=== PATIENT | male | born 1960 | race Caucasian/White ===

== ENCOUNTER 2020-05-26 06:51 | Day surgery (SDC) | payer MEDICARE, MEDICAID, SELFPAY ==
[2020-05-26 06:50] VITALS: BP 167/87; PULSE 60; RESP 16; TEMP 35.9; O2SAT 98
[2020-05-26] MEDS: Lidocaine 2% Jelly 6 ML SYR (08:25)
[2020-05-26] MEDS: Povidone-Iodine Ophth 30 ML BTL OD (08:26)
[2020-05-26] MEDS: Tetracaine 0.5% 4 ML BTL OD (08:28)
[2020-05-26] MEDS: Lidocaine 1% Pres-Free 5 ML VIAL (08:34)
[2020-05-26] MEDS: Balanced Salt Soln.-PLUS 500 ML BAG (08:34)
[2020-05-26] MEDS: Moxifloxacin-PF 1 MG/ML VIAL (08:37)
[2020-05-26] MEDS: Triamcinolone 40 MG/ML VIAL IM (08:41)
--- NOTE | 2020-05-26 09:06 | W.PM.DSUDISC ---
Discharge Plan Disposition Patient Disposition: HOME Condition: Good Discharge Details Attending Provider: Floyd Bauer Primary Care Provider: Vera Mcclendon Home Meds and New Rx's Prescriptions: No Action hydrochlorothiazide 50 MG tablet 50 mg PO DAILY RF: 0 amlodipine 10 MG tablet 10 mg PO DAILY RF: 0 simvastatin 20 MG tablet 20 mg PO DAILY RF: 0 lisinopril 40 MG tablet 40 mg PO DAILY RF: 0 KLOR-CON 10 10 MEQ TABLET.ER 10 meq PO DAILY RF: 0 omeprazole 40 mg capsule,delayed release(DR/EC) 40 mg PO DAILY RF: 0 Combigan 0.2-0.5 % drops 1 drp ophthalmic (eye) BID RF: 0 Discharge Instructions Stand Alone Forms: Post-op Topical Cataract, Jamilah Urrutia (DSU) Discharge Orders Discharge Orders: Discharge Order (Routine); Ordered 05/26/20 Ordered By: Floyd Bauer DS: Diagnosis Discharge Diagnosis (1) Cortical cataract of right eye: Status: Resolved (2) Posterior subcapsular age-related cataract, right eye: Status: Resolved (3) Posterior synechiae (iris), right eye: Status: Resolved (4) Uveitis, anterior: Status: Inactive
--- NOTE | 2020-05-26 09:08 | W.PM.OP ---
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 Cataract extraction by phacoemulsification with intraocular lens implantation, right eye, with pupillary expansion device SURGEON: Floyd Bauer ANESTHESIA: MAC (with local sub-tenon's anesthetic injection) PATHOLOGY: none sent COMPLICATIONS: None Patient was transported to: same day Patient's condition: stable Implants: [employer] / [employer] Tecnis [id number] Indications: Progressive decreased vision due to cataract, right eye, with poorly dilating pupil Procedure Description: CATARACT SURGERY OPERATIVE REPORT PREOPERATIVE DIAGNOSIS: 1. Cortical/posterior subcapsular cataract, right eye 2. Poorly dilating pupil, right eye 3. Extensive posterior synechia, right eye secondary to recurrent/chronic uveitis secondary to ankylosing spondylitis POSTOPERATIVE DIAGNOSIS: Same OPERATION: 1. Cataract extraction using phacoemulsification with posterior chamber intraocular lens implant, right eye. 2. Pupillary dilation and iris stabilization using Malyugin Ring/release of posterior synechia IOL: IOL Technical Sales Support Manager/Model: [employer] Ye[employer] / EDWARD Tecnis ZCB00 IOL Power: + 19.50 diopters IOL Serial Number: [id number] Optic Diameter: 6.0mm Haptic/Overall Diameter: 13.0mm PHACO INFO: Kristian INPHIurion Vision System with OZil and Active Fluidics Cumulative Dispersed Energy (CDE): 2.95 seconds SURGEON: Floyd Bauer MD, NA ANESTHESIA: Monitored Anesthesia Care (MAC), with local sub-tenon's anesthetic infiltration COMPLICATIONS: None SPECIMENS: None INDICATIONS FOR PROCEDURE: The patient is a 59-year-old gentleman with a long history of ankylosing spondylitis with recurrent/chronic uveitis. The right eye has extensive posterior synechia from recurrent bouts of UC uveitis and he has a uveitic cataract in the form of cortical and posterior subcapsular opacities. The option of cataract surgery was offered to the patient and he wished to proceed. PROCEDURE: The correct surgical eye was identified and marked as the right eye and the pupil was dilated in the preoperative area using mydriatics and cycloplegics. The dilated pupil size was 3.5 mm. Patient elected to proceed without sedation the patient was brought to the operating room where cardiopulmonary monitoring was instituted and surgical time-out was performed, confirming the correct operative eye and IOL power. Topical anesthesia was administered and ophthalmic povidone-iodine 5% was instilled into the conjunctival fornices. Lidocaine gel was applied to the cornea and the kayley-ocular area was prepped with Betadine 10% solution and draped in the usual sterile fashion for intraocular surgery, including an aperture drape. A Tegaderm transparent film dressing was cut in half and used to cover the lashes and lid margins. Care was taken to sequester the lashes and lid margins under the Tegaderm dressing. A lid speculum was placed between the lids of the operative eye and the Dima-Mary operating microscope was maneuvered into position. Miriam scissors were then used to make a conjunctival buttonhole approximately 6mm posterior to the limbus in the inferonasal quadrant. Blunt dissection was carried out to expose bare sclera, and a blunt-tipped sub-tenon?s anesthesia cannula was introduced and passed posteriorly along the globe where non-preserved plain lidocaine was injected into posterior sub-Tenon?s space. A sideport knife was used to make a paracentesis port inferiortemporally. Intraocular phenylephrine/lidocaine was injected in the anterior chamber. The anterior chamber was filled with Healon Pro. A 2.4mm keratome knife was used to create a half-thickness groove at the limbus and then to construct a three-plane near-clear corneal tunnel extending 2.0mm into clear cornea superiortemporally. A Kuglen hook was then used to release the extensive posterior synechia. Pupil size was 4 mm. Attempts at pupil stretching were unsuccessful due to the dense fibrotic kayley-pupillary tissue. A 7.0 mm Malyugin Ring was then inserted into the pupillary space and engaged with the Kuglen hook. A flap was raised on the anterior capsule and capsulorhexis forceps were used to complete a continuous curvilinear capsulorhexis of 5.5 mm. Balanced salt solution was then used to perform cortical cleaving hydrodissection and nuclear hydrodelineation until the lens could be freely rotated within the capsular bag. The lens nucleus was then disassembled and removed within the capsular bag and iris plane using phacoemulsification. Residual cortical material was removed using the 45-degree angled silicone I/A tip with 0.3mm port. The posterior capsule was carefully polished to remove as much residual lens epithelial cells as safely possible. The capsular bag was then inflated and the anterior chamber deepened with viscoelastic. The lens implant described above was inserted into the capsular bag using the [employer]WARD [place] Injector. A Kuglen hook was used to dial the IOL into position. The Malyugin Ring was removed in the reverse order of its insertion. Residual viscoelastic was then removed first from posterior to the IOL, then from the anterior chamber using the I/A handpiece. The lens implant was noted to center nicely within the capsular bag. The incisions were stromally hydrated, and the anterior chamber was reformed using BSS. Then 0.5cc of moxifloxacin 1.0mg/ml were injected into the capsular bag and anterior chamber. The incisions were checked with a Weck spear and found to be secure. At the conclusion of the procedure, Kenalog 20 mg in 0.5 cc was injected into posterior sub-tenon's space using the sub-tenon's anesthetic injection cannula. Several drops of ophthalmic povidone-iodine 5% were then applied to the eye followed by two drops of Imprimis combination prednisolone/moxifloxacin/nepafenac solution. The drapes were removed and a clear plastic protective eye shield was placed over the eye. The patient was then returned to [facility] in stable condition.
== END 2020-05-26 09:35 | disposition home or self-care (01) ==
PROVIDERS: PCP Nurse Practitioner Family; Visit Provider Ophthalmology
PROC: (CPT 66982; principal; 2020-05-26 08:30)
DX: H25.041 Posterior subcapsular polar age-related cataract, right eye (principal); H21.541 Posterior synechiae (iris), right eye; H20.021 Recurrent acute iridocyclitis, right eye; H57.09 Other anomalies of pupillary function; M45.9 Ankylosing spondylitis of unspecified sites in spine; J44.9 Chronic obstructive pulmonary disease, unspecified; I10 Essential (primary) hypertension; K21.9 Gastro-esophageal reflux disease without esophagitis
CPT/HCPCS: 66982; V2632

== ENCOUNTER 2020-06-09 10:37 | Day surgery (SDC) | payer MEDICARE, MEDICAID, SELFPAY ==
[2020-06-09 10:40] VITALS: BP 158/86; PULSE 58; RESP 20; TEMP 36.6; O2SAT 97
[2020-06-09] MEDS: Tetracaine 0.5% 4 ML BTL OS (12:26)
[2020-06-09] MEDS: Lidocaine 2% Jelly 6 ML SYR (12:27)
[2020-06-09] MEDS: Povidone-Iodine Ophth 30 ML BTL (12:27)
[2020-06-09] MEDS: Balanced Salt Soln.-PLUS 500 ML BAG (12:33)
[2020-06-09] MEDS: Lidocaine 1% Pres-Free 5 ML VIAL (12:36)
[2020-06-09] MEDS: Moxifloxacin-PF 1 MG/ML VIAL (12:38)
--- NOTE | 2020-06-09 12:59 | W.PM.DSUDISC ---
Discharge Plan Disposition Patient Disposition: HOME Condition: Good Discharge Details Attending Provider: Flody Bauer Primary Care Provider: Vera Mcclendon Home Meds and New Rx's Prescriptions: No Action hydrochlorothiazide 50 MG tablet 50 mg PO DAILY RF: 0 amlodipine 10 MG tablet 10 mg PO DAILY RF: 0 simvastatin 20 MG tablet 20 mg PO DAILY RF: 0 lisinopril 40 MG tablet 40 mg PO DAILY RF: 0 KLOR-CON 10 10 MEQ TABLET.ER 10 meq PO DAILY RF: 0 omeprazole 40 mg capsule,delayed release(DR/EC) 40 mg PO DAILY RF: 0 Combigan 0.2-0.5 % drops 1 drp ophthalmic (eye) BID RF: 0 Discharge Instructions Stand Alone Forms: Post-op Topical CataractJamilah (DSU) Discharge Orders Discharge Orders: Discharge Order (Routine); Ordered 06/09/20 Ordered By: Floyd Bauer DS: Diagnosis Discharge Diagnosis (1) Cortical cataract of left eye: Status: Resolved
--- NOTE | 2020-06-09 13:01 | ROE_ITS ---
Date of service: 06/09/20 Time of Service: 13:01 Operative Note Operative Note DATE OF PROCEDURE: 06/09/20 PRE-OP DIAGNOSIS: Cortical cataract, left eye POST-OP DIAGNOSIS: same PROCEDURE: Cataract extraction using phacoemulsification with intraocular lens implant, left eye SURGEON: Floyd Bauer ANESTHESIA: MAC and local (sub-tenon's anesthetic infiltration) PATHOLOGY: none sent COMPLICATIONS: None Patient was transported to: same day Patient's condition: stable Implants: [employer] Ye[employer] Vision / [employer] Tecnis ZCB00 Indications: Progressive decreased vision due to cataract, left eye Procedure Description: CATARACT SURGERY OPERATIVE REPORT PREOPERATIVE DIAGNOSIS: Cortical cataract, left eye POSTOPERATIVE DIAGNOSIS: Same OPERATION: Cataract extraction using phacoemulsification with posterior chamber intraocular lens implant, left eye. IOL: IOL Marking Machine Operator/Model: [employer] / EDWARD Tecnis ZCB00 IOL Power: + 20.0 diopters IOL Serial Number: [id number] Optic Diameter: 6.0mm Haptic/Overall Diameter: 13.0mm PHACO INFO: Kristian Apprionurion Vision System with OZil and Active Fluidics Cumulative Dispersed Energy (CDE): 4.78 seconds SURGEON: Floyd Bauer MD, NA ANESTHESIA: Monitored Anesthesia Care (MAC), with local sub-tenon's anesthetic infiltration COMPLICATIONS: None SPECIMENS: None INDICATIONS FOR PROCEDURE: The patient is a 59-year-old gentleman with long history of ankylosing spondylitis with uveitis who developed significant cataract and anterior synechia in the right eye. He has recently undergone cataract surgery in the right eye. He has a significant cortical cataract in the left eye and now desires cataract surgery and attempt to improve and maximize his vision there. PROCEDURE: The correct surgical eye was identified and marked as the left eye and the pupil was dilated in the preoperative area using mydriatics and cycloplegics. The dilated pupil size was 7.0 mm. The patient elected to have the procedure without sedation. The patient was brought to the operating room where cardiopulmonary monitoring was instituted and surgical time-out was performed, confirming the correct operative eye and IOL power. Topical anesthesia was administered and ophthalmic povidone-iodine 5% was instilled into the conjunctival fornices. Lidocaine gel was applied to the cornea and the kayley-ocular area was prepped with Betadine 10% solution and draped in the usual sterile fashion for intraocular surgery, including an aperture drape. A Tegaderm transparent film dressing was cut in half and used to cover the lashes and lid margins. Care was taken to sequester the lashes and lid margins under the Tegaderm dressing. A lid speculum was placed between the lids of the operative eye and the Dima-Mary operating microscope was maneuvered into position. Miriam scissors were then used to make a conjunctival buttonhole approximately 6mm posterior to the limbus in the inferonasal quadrant. Blunt dissection was carried out to expose bare sclera, and a blunt-tipped sub-tenon?s anesthesia cannula was introduced and passed posteriorly along the globe where non- preserved plain lidocaine was injected into posterior sub-Tenon?s space. A sideport knife was used to make a paracentesis port superior/superiortemporally. Intraocular phenylephrine/lidocaine was injected into the anterior chamber. The anterior chamber was then filled with Healon Pro. A 2.4mm keratome knife was us ed to create a half-thickness groove at the limbus and then to construct a three-plane near-clear corneal tunnel extending 2.0mm into clear cornea in the temporal position. . A flap was raised on the anterior capsule and capsulorhexis forceps were used to complete a continuous curvilinear capsulorhexis of 5.5 mm. Balanced salt solution was then used to perform cortical cleaving hydrodissection and nuclear hydrodelineation until the lens could be freely rotated within the capsular bag. The lens nucleus was then disassembled and removed within the capsular bag and iris plane using phacoemulsification. Residual cortical material was removed using the 45-degree angled silicone I/A tip with 0.3mm port. The posterior capsule was carefully polished to remove as much residual lens epithelial cells as safely possible. The capsular bag was then inflated and the anterior chamber deepened with viscoelastic. The lens implant described above was inserted into the capsular bag using the [employer] Plati num Injector. A Kuglen hook was used to dial the IOL into position. Residual viscoelastic was then removed first from posterior to the IOL, then from the anterior chamber using the I/A handpiece. The lens implant was noted to center nicely within the capsular bag. The incisions were stromally hydrated, and the anterior chamber was reformed using BSS. Then 0.5cc of moxifloxacin 1.0mg/ml were injected into the capsular bag and anterior chamber. The incisions were checked with a Weck spear and found to be secure. Several drops of ophthalmic povidone-iodine 5% were then applied to the eye followed by two drops of Imprimis combination prednisolone/moxifloxacin/nepafenac solution. The drapes were removed and a clear plastic protective eye shield was placed over the eye. The patient was then returned to Same Day Surgery in stable condition.
== END 2020-06-09 13:18 | disposition home or self-care (01) ==
PROVIDERS: PCP Nurse Practitioner Family; Visit Provider Ophthalmology
PROC: (CPT 66984; principal; 2020-06-09 13:30)
DX: H25.011 Cortical age-related cataract, right eye (principal); M45.9 Ankylosing spondylitis of unspecified sites in spine; H20.13 Chronic iridocyclitis, bilateral; H26.212 Cataract with neovascularization, left eye; Z96.1 Presence of intraocular lens; Z98.41 Cataract extraction status, right eye
CPT/HCPCS: 66984; V2632